=== PATIENT | male | born 1990 | race Caucasian/White ===

== ENCOUNTER 2020-11-02 22:25 | Emergency (ER) | payer OTHER ==
[2020-11-02 23:01] LABS: BASOPHIL 0.4 % (0-2); EOSINOPHIL 0 % (0-5); HCT 39.9 % (42.0-52.0); LYMPHOCYTE 35.8 % (15-48); MCH 28.9 pg (25.0-31.0); MCHC 35.1 g/dL (32.0-36.0); MCV 82.4 fL (78.0-100.0); MONOCYTE 8.5 % (0-12); MPV 8.7 fL (6.0-9.5); NEUTROPHIL 54.9 % (41-80); NRBC 0; PLT 307 K/uL (150-400); RBC 4.84 M/uL (4.70-6.00); RDW 12.7 % (11.5-14.0); WBC 8.1 K/uL (4.0-10.5)
[2020-11-02 23:16] LABS: BUN 17 mg/dL (7-18); BUN/CREAT RATIO (CALC) 13.2 RATIO; C-REACTIVE PROTEIN <0.20 mg/dL (<=0.90); CHLORIDE 105 mmol/L (98-107); CO2 (BICARBONATE) 25 mmol/L (21-32); CREATININE 1.29 mg/dL (0.67-1.17); GLUCOSE 151 mg/dL (74-106); POTASSIUM 4.2 mmol/L (3.5-5.1)
[2020-11-03] MEDS ORDERED: ASPIRIN325 MG PO (00:35)
== END 2020-11-03 01:15 | disposition home or self-care (01) ==
LOC: FER 22:25
PROVIDERS: Emergency Medicine Emergency Medical Services
DX: M79.622 Pain in left upper arm (principal); Z86.16 Personal history of COVID-19
CPT/HCPCS: 36415; 73060; 80048; 84484; 85025; 85379; 86140; 93971